=== PATIENT | male | born 1940 | race Caucasian/White ===

== ENCOUNTER → 2016-04-27 | Outpatient (CLI) | payer MEDICARE, BC ==
[~2016-04-27] MED LIST: AMBISOME50 MG/20 M IV; AUGMENTIN875 MG PO; BACTROBAN OINT.22 GM TP; CLARITIN DPS10 MG PO; DIFLUCAN DPS200 MG PO; GRANIX480 MCG/0. SQ; HYDROCODONE 5MG/5 MG PO; LEVAQUIN DPS750 MG PO; MIRALAX PACKET17 GM PO; MONTELUKAST SOD10 MG PO; OXY IR DPS5 MG PO; PEPCID DPS20 MG PO; PERIDEX15 ML PO; PRESERVISION A1 EAC2 PO; SENOKOT DPS8.6 MG PO; SENOKOT8.6 MG PO; TYLENOL DPS325 MG PO; TYLENOL EXTRA500 M1 PO; VORICONAZOLE200 MG PO; ZYLOPRIM-DPS300 MG PO; [UNRECOGNIZED DRUG - MIXTURE] PO; [UNRECOGNIZED DRUG - OTHER] PO
== END | disposition home or self-care (01) ==
LOC: CARD 09:00
DX: C92.20 Atypical chronic myeloid leukemia, BCR/ABL-negative, not having achieved remission (principal); C92.00 Acute myeloblastic leukemia, not having achieved remission

== ENCOUNTER 2016-05-02 07:35 | Day surgery (SDC) | payer MEDICARE, BC ==
[~2016-05-02] VITALS: Ht 177.8 cm; Wt 81.7 kg
== END 2016-05-02 10:45 | disposition home or self-care (01) ==
LOC: RAD.S 07:35
PROC: 07DR3ZX Extraction of Iliac Bone Marrow, Percutaneous Approach, Diagnostic (ICD-10-PCS; principal; 2016-05-02)
DX: C92.Z0 Other myeloid leukemia not having achieved remission (principal); D69.6 Thrombocytopenia, unspecified; D53.9 Nutritional anemia, unspecified; Z79.891 Long term (current) use of opiate analgesic; Z79.899 Other long term (current) drug therapy

== ENCOUNTER 2016-08-27 07:37 | Day surgery (SDC) | payer MEDICARE, BC ==
[~2016-08-27] VITALS: Ht 177.8 cm; Wt 83.9 kg
== END 2016-08-27 11:20 | disposition home or self-care (01) ==
LOC: RAD.S 07:37
PROC: 07DR3ZX Extraction of Iliac Bone Marrow, Percutaneous Approach, Diagnostic (ICD-10-PCS; principal; 2016-08-27)
DX: C92.00 Acute myeloblastic leukemia, not having achieved remission (principal); D61.818 Other pancytopenia; Z79.899 Other long term (current) drug therapy